=== PATIENT | female | born 1965 | race American Indian/Alaskan Native ===

== ENCOUNTER 2018-08-25 10:46 | Emergency (ER) | payer BC, OTHER ==
--- NOTE | 2018-08-25 11:22 | EDM.PDOC ---
ED HPI GENERAL MEDICAL PROBLEM - General Chief Complaint: Genitourinary Problem Stated Complaint: BLOOD IN URINE Time Seen by Provider: 08/25/18 11:15 Source of Information: Reports: Patient History Limitations: Reports: No Limitations - History of Present Illness INITIAL COMMENTS - FREE TEXT/NARRATIVE: 53-year-old female of [place] ancestry presents to the ED from [place], [place]. She presented to the clinic there with complaints of dysuria ,urgency frequency and gross hematuria associated with chills and bilateral back pain. She's been essentially laying in bed for the last 2-3 days because of illness. She has not ate or drank much. She is a type II diabetic controlled primarily with Lantus insulin 42 units twice a day. She has Humalog insulin to be used when necessary with meals. Barely her diabetes is very poorly controlled. She continues to lose weight although she's not sure how much. She recognizes that her pants are ill fitting. I can smell ketones on her breath. Denies any nausea or vomiting. She denies fever. She has had rigors/ chills last night and the night before. Onset: Sudden Onset Date: 08/23/18 (Started to feel ill on Wednesday.) Duration: Day(s):, Getting Worse Location: Reports: Back (Gross hematuria urgency frequency and bilateral flank pain lateral flank pain), Generalized, Other Quality: Reports: Ache (Chills with no identified fever) Severity: Moderate (bilateral backache in the flanks and lower back) Improves with: Reports: None Worsens with: Reports: None Context: Denies: Activity, Exercise, Lifting, Sick Contact, Trauma, Other Associated Symptoms: Reports: Cough, Fever/Chills, Loss of Appetite, Malaise, Nausea/Vomiting, Shortness of Breath. 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: Other (see below) (Mild nausea without vomiting none.) Lower Back Pain Score (Numeric/FACES): 6 - Related Data Allergies Allergy/AdvReac Type Severity Reaction Status Date / Time sulfamethoxazole Allergy Hives Verified 08/25/18 11:04 [From Bactrim] trimethoprim [From Bactrim] Allergy Hives Verified 08/25/18 11:04 Home Meds: Home Meds Ciprofloxacin HCl [Cipro] 500 mg PO BID #18 tablet 08/25/18 [Rx] Furosemide [Lasix] 40 mg PO DAILY #30 tablet 08/25/18 [Rx] Insulin Aspart [NovoLOG] 0 units INJECT ASDIRECTED 08/25/18 [History] Insulin Glarg,Human.Rec.Analog [Lantus] 42 units INJECT BID 08/25/18 [History] Magnesium Chloride [Slow-Mag] 71.5 mg PO BID #60 tablet. 08/25/18 [Rx] Potassium Chloride 20 meq PO BID #60 tablet.er 08/25/18 [Rx] Past Medical History Cardiovascular History: Reports: Bypass, High Cholesterol, Hypertension Other Cardiovascular History: triple Respiratory History: Reports: COPD (Still smokes 1-3 cigarettes per day.) Genitourinary History: Reports: UTI, Recurrent Other Genitourinary History: yeast infections Neurological History: Reports: Other (See Below) (Bilateral peripheral neuropathy in lower extremities and restless leg syndrome.) Psychiatric History: Reports: Anxiety, Depression Endocrine/Metabolic History: Reports: Diabetes, Type II - Past Surgical History Cardiovascular Surgical History: Reports: Coronary Artery Bypass, Coronary Artery Stent (Bypass carried out in 2001. Stent 1 placed prior to that she believes it may be 2000) GI Surgical History: Reports: Appendectomy Social & Family History - Tobacco Use Smoking Status *Q: Current Every Day Smoker Years of Tobacco use: 10 Packs/Tins Daily: 0.3 - Caffeine Use Caffeine Use: Reports: Soda, Tea - Recreational Drug Use Recreational Drug Type: Reports: Marijuana/Hashish Other Recreational Drug Type: twice per week - Living Situation & Occupation Living situation: Reports: Occupation: Employed [employer] [facility] - Review of Systems Review Of Systems: See Below Constitutional: Reports: Chills, Malaise, Weakness, Fatigue, Decreased Appetite , Weight Loss. Denies: Fever HEENT: Reports: Glasses Respiratory: Reports: Shortness of Breath, Wheezing, Cough. Denies: Pleuritic Chest Pain (Occasional wheezing), Sputum, Hemoptysis (Chronic cough minimal sputum production) Cardiovascular: Reports: Blood Pressure Problem, Dyspnea on Exertion (Feels lightheaded dizzy and weak since onset of illness 2 days ago), Lightheadedness. Denies: Chest Pain, Claudication (Chronic hypertension), Orthopnea Endocrine: Reports: Fatigue, High Glucose GI/Abdominal: Reports: Decreased Appetite, Nausea. Denies: Diarrhea, Melena, Vomiting : Reports: Dysuria, Frequency, Hematuria (Gross hematuria) Musculoskeletal: Reports: Joint Pain Skin: Reports: No Symptoms (These hips low back at times. Both feet hurt at nighttime due to peripheral neuropathy and restless leg syndrome.) Neurological: Reports: Other (Peripheral neuropathy below the knees bilaterally. ) Psychiatric: Reports: No Symptoms Hematologic/Lymphatic: Reports: No Symptoms ( I history has restless leg syndrome which is not being treated at present.) Immunologic: Reports: No Symptoms ED EXAM, RENAL/ - Physical Exam Exam: See Below Exam Limited By: No Limitations General Appearance: Alert, WD/WN, No Apparent Distress, Other (She is afebrile with a tinge of 35.8 and by palpation she is not warm to palpation at this time. She is cachectic in appearance and I can smell ketones on her breath.) Eye Exam: Bilateral Eye: Normal Inspection Throat/Mouth: Other Head: Atraumatic (On is very dry and coated.), Normocephalic Neck: Normal Inspection, Supple, Non-Tender, Full Range of Motion. No: Carotid Bruit, Lymphadenopathy (L), Lymphadenopathy (R), Thyromegaly Respiratory/Chest: Respiratory Distress (Tachypnea get rest 20-24/m.), Decreased Breath Sounds. No: Rhonchi (Breath sounds are diminished the lower 20 % of lung szymanski bilaterally with occasional expiratory wheezes.) Cardiovascular: Regular Rate, Rhythm, No Edema, No Gallop, No Murmur, No Rub. No: Normal Peripheral Pulses GI/Abdominal: Normal Bowel Sounds, Soft, Non-Tender, No Organomegaly, No Abnormal Bruit, No Mass, Pelvis Stable, Other (Has had an appendectomy.) Back Exam: Normal Inspection, Full Range of Motion, CVA Tenderness (L), CVA Tenderness (R) (Mild), Other ( mildpain is actually below the costal phrenic angles bilaterally. ) Extremities: Normal Inspection, Normal Range of Motion, Non-Tender, No Pedal Edema, Other (She has wasting of the musculature in her arms and legs.). No: Pedal Edema Neurological: Alert, Oriented, CN II-XII Intact, Normal Cognition, Other Psychiatric: Normal Affect, Normal Mood (Lightheaded and dizzy.) Skin Exam: Warm, Dry, Intact, Normal Color, No Rash Course - Vital Signs Last Recorded V/S: Last Vital Signs Temp 35.8 C 08/25/18 11:11 Pulse 98 08/25/18 11:11 Resp 20 08/25/18 11:11 BP 194/104 H 08/25/18 11:11 Pulse Ox 99 08/25/18 11:11 Orthostatic Blood Pressure [ 97/58 Standing] Orthostatic Blood Pressure [ 97/60 Sitting] Orthostatic Blood Pressure [ 128/79 Supine] - Orders/Labs/Meds Orders: Active Orders 24 hr Category Date Time Status Blood Glucose Check, Bedside [RC] ONETIME Care 08/25/18 15:09 Active CULTURE BLOOD [BC] Stat Lab 08/25/18 11:45 Received CULTURE BLOOD [BC] Stat Lab 08/25/18 11:55 Received CULTURE URINE [RM] Stat Lab 08/25/18 12:29 Received Magnesium Sulfate/Water [Magnesium Sulfate 4 GM in Med 08/25/18 13:00 Active Water 50 ML] 4 gm Premix Bag 1 bag IV ONETIME Sodium Chloride 0.9% [Normal Saline] 1,000 ml Med 08/25/18 11:30 Active IV ASDIRECTED Sodium Chloride 0.9% [Normal Saline] 250 ml Med 08/25/18 13:00 Active IV ASDIRECTED cefTRIAXone [Rocephin] 2 gm Med 08/25/18 11:45 Active Sodium Chloride 0.9% [Normal Saline] 100 ml IV Q24H Blood Culture x2 Reflex Set [OM.PC] Stat Oth 08/25/18 11:26 Ordered Medication Orders Sodium Chloride (Normal Saline) 1,000 mls @ 999 mls/hr IV ASDIRECTED BART Last Admin: 08/25/18 12:00 Dose: 999 mls/hr Ceftriaxone Sodium 2 gm/ (Sodium Chloride) 100 mls @ 200 mls/hr IV Q24H [facility] Last Admin: 08/25/18 12:00 Dose: 200 mls/hr Magnesium Sulfate 4 gm/ Premix 50 mls @ 12.5 mls/hr IV ONETIME ONE Stop: 08/25/18 16:59 Last Admin: 08/25/18 14:23 Dose: 12.5 mls/hr Sodium Chloride (Normal Saline) 250 mls @ 250 mls/hr IV ASDIRECTED BART Last Admin: 08/25/18 15:29 Dose: 250 mls/hr Labs: Laboratory Tests 08/25/18 08/25/18 08/25/18 Range/Units 11:45 11:45 11:45 WBC 6.65 (3.98-10.04) K/mm3 RBC 4.72 (3.98-5.22) M/mm3 Hgb 14.5 (11.2-15.7) gm/L Hct 41.7 (34.1-44.9) % MCV 88.3 (79.4-94.8) fl MCH 30.7 (25.6-32.2) pg MCHC 34.8 (32.2-35.5) g/dl RDW Std Deviation 42.4 (36.4-46.3) fL Plt Count 160 L (182-369) K/mm3 MPV 10.5 (9.4-12.3) fl Neutrophils % (Manual) 57 (40-60) % Band Neutrophils % 0 (0-10) % Lymphocytes % (Manual) 31 (20-40) % Atypical Lymphs % 0 % Monocytes % (Manual) 12 H (2-10) % Eosinophils % (Manual) 0 L (0.7-5.8) % Basophils % (Manual) 0 L (0.1-1.2) Platelet Estimate Adequate RBC Morph Comment Normal Sodium 128 L (136-145) mEq/L Potassium 3.1 L (3.5-5.1) mEq/L Chloride 84 L (98-107) mEq/L Carbon Dioxide 32 (21-32) mEq/L Anion Gap 15.1 H (5-15) BUN 20 H (7-18) mg/dL Creatinine 0.8 (0.55-1.02) mg/dL Est Cr Clr Drug Dosing 65.05 mL/min Estimated GFR (MDRD) > 60 (>60) mL/min BUN/Creatinine Ratio 25.0 H (14-18) Glucose 395 H (74-106) mg/dL POC Glucose (70-105) mg/dL Hemoglobin A1c (4.50-6.20) % Lactic Acid 1.4 (0.4-2.0) mmol/L Calcium 7.6 L (8.5-10.1) mg/dL Magnesium 0.6 L (1.8-2.4) mg/dl Total Bilirubin 1.0 (0.2-1.0) mg/dL AST 141 H (15-37) U/L ALT 88 H (14-59) U/L Alkaline Phosphatase 124 H (46-116) U/L C-Reactive Protein < 0.2 (<1.0) mg/dL NT-Pro-B Natriuret Pep (0-125) pg/mL Total Protein 8.2 (6.4-8.2) g/dl Albumin 2.7 L (3.4-5.0) g/dl Globulin 5.5 gm/dL Albumin/Globulin Ratio 0.5 L (1-2) TSH 3rd Generation (0.358-3.74) uIU/mL Urine Color (Yellow) Urine Appearance (Clear) Urine pH (5.0-8.0) Ur Specific Overton (1.005-1.030) Urine Protein (Negative) Urine Glucose (UA) (Negative) Urine Ketones (Negative) Urine Occult Blood (Negative) Urine Nitrite (Negative) Urine Bilirubin (Negative) Urine Urobilinogen (0.2-1.0) Ur Leukocyte Esterase (Negative) Urine RBC (0-5) /hpf Urine WBC (0-5) /hpf Urine WBC Clumps (NOT SEEN) /hpf Ur Epithelial Cells (0-5) /hpf Urine Bacteria (FEW) /hpf Urine Mucus (FEW) /hpf Ketones (0.0-0.3) mM 08/25/18 08/25/18 08/25/18 Range/Units 11:45 11:45 11:45 WBC (3.98-10.04) K/mm3 RBC (3.98-5.22) M/mm3 Hgb (11.2-15.7) gm/L Hct (34.1-44.9) % MCV (79.4-94.8) fl MCH (25.6-32.2) pg MCHC (32.2-35.5) g/dl RDW Std Deviation (36.4-46.3) fL Plt Count (182-369) K/mm3 MPV (9.4-12.3) fl Neutrophils % (Manual) (40-60) % Band Neutrophils % (0-10) % Lymphocytes % (Manual) (20-40) % Atypical Lymphs % % Monocytes % (Manual) (2-10) % Eosinophils % (Manual) (0.7-5.8) % Basophils % (Manual) (0.1-1.2) Platelet Estimate RBC Morph Comment Sodium (136-145) mEq/L Potassium (3.5-5.1) mEq/L Chloride (98-107) mEq/L Carbon Dioxide (21-32) mEq/L Anion Gap (5-15) BUN (7-18) mg/dL Creatinine (0.55-1.02) mg/dL Est Cr Clr Drug Dosing mL/min Estimated GFR (MDRD) (>60) mL/min BUN/Creatinine Ratio (14-18) Glucose (74-106) mg/dL POC Glucose (70-105) mg/dL Hemoglobin A1c 8.70 H (4.50-6.20) % Lactic Acid (0.4-2.0) mmol/L Calcium (8.5-10.1) mg/dL Magnesium (1.8-2.4) mg/dl Total Bilirubin (0.2-1.0) mg/dL AST (15-37) U/L ALT (14-59) U/L Alkaline Phosphatase (46-116) U/L C-Reactive Protein (<1.0) mg/dL NT-Pro-B Natriuret Pep 1583 H (0-125) pg/mL Total Protein (6.4-8.2) g/dl Albumin (3.4-5.0) g/dl Globulin gm/dL Albumin/Globulin Ratio (1-2) TSH 3rd Generation (0.358-3.74) uIU/mL Urine Color (Yellow) Urine Appearance (Clear) Urine pH (5.0-8.0) Ur Specific Overton (1.005-1.030) Urine Protein (Negative) Urine Glucose (UA) (Negative) Urine Ketones (Negative) Urine Occult Blood (Negative) Urine Nitrite (Negative) Urine Bilirubin (Negative) Urine Urobilinogen (0.2-1.0) Ur Leukocyte Esterase (Negative) Urine RBC (0-5) /hpf Urine WBC (0-5) /hpf Urine WBC Clumps (NOT SEEN) /hpf Ur Epithelial Cells (0-5) /hpf Urine Bacteria (FEW) /hpf Urine Mucus (FEW) /hpf Ketones 2.6 (0.0-0.3) mM 08/25/18 08/25/18 08/25/18 Range/Units 11:45 12:12 13:31 WBC (3.98-10.04) K/mm3 RBC (3.98-5.22) M/mm3 Hgb (11.2-15.7) gm/L Hct (34.1-44.9) % MCV (79.4-94.8) fl MCH (25.6-32.2) pg MCHC (32.2-35.5) g/dl RDW Std Deviation (36.4-46.3) fL Plt Count (182-369) K/mm3 MPV (9.4-12.3) fl Neutrophils % (Manual) (40-60) % Band Neutrophils % (0-10) % Lymphocytes % (Manual) (20-40) % Atypical Lymphs % % Monocytes % (Manual) (2-10) % Eosinophils % (Manual) (0.7-5.8) % Basophils % (Manual) (0.1-1.2) Platelet Estimate RBC Morph Comment Sodium (136-145) mEq/L Potassium (3.5-5.1) mEq/L Chloride (98-107) mEq/L Carbon Dioxide (21-32) mEq/L Anion Gap (5-15) BUN (7-18) mg/dL Creatinine (0.55-1.02) mg/dL Est Cr Clr Drug Dosing mL/min Estimated GFR (MDRD) (>60) mL/min BUN/Creatinine Ratio (14-18) Glucose (74-106) mg/dL POC Glucose 361 H (70-105) mg/dL Hemoglobin A1c (4.50-6.20) % Lactic Acid (0.4-2.0) mmol/L Calcium (8.5-10.1) mg/dL Magnesium (1.8-2.4) mg/dl Total Bilirubin (0.2-1.0) mg/dL AST (15-37) U/L ALT (14-59) U/L Alkaline Phosphatase (46-116) U/L C-Reactive Protein (<1.0) mg/dL NT-Pro-B Natriuret Pep (0-125) pg/mL Total Protein (6.4-8.2) g/dl Albumin (3.4-5.0) g/dl Globulin gm/dL Albumin/Globulin Ratio (1-2) TSH 3rd Generation 1.741 (0.358-3.74) uIU/mL Urine Color Yellow (Yellow) Urine Appearance Slt cloudy H (Clear) Urine pH 7.0 (5.0-8.0) Ur Specific Overton 1.015 (1.005-1.030) Urine Protein 3+ H (Negative) Urine Glucose (UA) 3+ H (Negative) Urine Ketones 1+ H (Negative) Urine Occult Blood 3+ H (Negative) Urine Nitrite Negative (Negative) Urine Bilirubin 1+ H (Negative) Urine Urobilinogen 1.0 (0.2-1.0) Ur Leukocyte Esterase 1+ H (Negative) Urine RBC 10-20 H (0-5) /hpf Urine WBC 30-40 H (0-5) /hpf Urine WBC Clumps Moderate (NOT SEEN) /hpf Ur Epithelial Cells 0-5 (0-5) /hpf Urine Bacteria Few (FEW) /hpf Urine Mucus Rare H (FEW) /hpf Ketones (0.0-0.3) mM Meds: Medications Generic Name Dose Route Start Last Admin Trade Name Freq PRN Reason Stop Dose Admin Sodium Chloride 1,000 mls @ 999 mls/hr 08/25/18 11:30 08/25/18 12:00 Normal Saline IV 999 mls/hr ASDIRECTED BART Administration Ceftriaxone Sodium 2 gm/ 100 mls @ 200 mls/hr 08/25/18 11:45 08/25/18 12:00 Sodium Chloride IV 200 mls/hr Q24H BART Administration Magnesium Sulfate 4 gm/ Premix 50 mls @ 12.5 mls/hr 08/25/18 13:00 08/25/18 14:23 IV 08/25/18 16:59 12.5 mls/hr ONETIME ONE Administration Sodium Chloride 250 mls @ 250 mls/hr 08/25/18 13:00 08/25/18 15:29 Normal Saline IV 250 mls/hr ASDIRECTED BART Administration Discontinued Medications Generic Name Dose Route Start Last Admin Trade Name Freq PRN Reason Stop Dose Admin Furosemide 40 mg 08/25/18 13:01 08/25/18 13:21 Lasix IVPUSH 04/11/19 13:02 40 mg NOW ONE Administration Potassium Chloride 10 meq/ 100 mls @ 100 mls/hr 08/25/18 13:00 08/25/18 13:21 Premix IV 08/25/18 13:59 100 mls/hr ONETIME ONE Administration Insulin Human Regular 10 unit 08/25/18 13:03 08/25/18 13:30 Humulin R SUBCUT 08/25/18 13:04 10 units ONETIME ONE Administration Ondansetron HCl 4 mg 08/25/18 11:32 08/25/18 12:00 Zofran IVPUSH 08/25/18 11:33 4 mg ONETIME ONE Administration - Radiology Interpretation Free Text/Narrative:: 53-year-old female of [place] presents to the ED with a history of gross hematuria 2 days with associated urgency frequency and terminal dysuria. She is developed bilateral flank low back pain as well with associated chills but no definitive fever. Patient is a type II diabetic and apparently not very well controlled. She does not check her sugars anymore. She states they used to be good. The history supplied by [facility] clinic suggest that she is poorly controlled type II diabetic with a glycosylated protein recently checked at 13.2. She is supposed to be on Lantus insulin 42 units twice a day. He recognizes that she has urinary frequency polyuria or polydipsia is losing weight but she is not sure how much weight. Currently I can smell ketones on her breath. She clinically has a urinary tract infection most likely with pyelonephritis with chills reported. Septic workup to be done to to include lactic acid serum ketones and of course urinalysis and culture. She'll be started on Rocephin 2 g IV as soon as blood cultures 2 been collected and urinalysis. - Re-Assessments/Exams Free Text/Narrative Re-Assessment/Exam: 08/25/18 12:55 Labs are back. White count is normal at 6.65. Differentials 57% neutrophils and no band cells. Hemoglobin is 14.5 with a hematocrit of 41.7. Platelet count is 160,000. Sodium is low at 128. Potassium is low at 3.1. Chloride is 84 with a bicarbonate of 32 i.e. CO2 retainer. Anion gap is 15.1. BUNs 20 with a creatinine of 0.8. GFR is greater than 60. Glucose is elevated at 395. Hemoglobin A1c is 8.70. Lactic acid is 1.4 calcium is 7.6 magnesium is very low at 0.6. Total bilirubin is 1.0 AST is elevated at 141 ALT is elevated at 88 alk phosphatase is 124. C-reactive protein is less than 0.2. BNP is elevated at 1583. Total protein is 8.2 with an albumin fraction low at 2.7. Urinalysis shows 3+ proteinuria 3+ glucosuria 1+ ketonuria and 3+. Blood. 1+ bilirubin 1+ leukocyte esterase 10-20 RBCs per high power field 30-40 WBCs per high-power field and white blood cells identified in clumps. Few bacteria noted .Urine culture has been ordered 08/25/18 13:02 discussed the findings of the labs with the patient. Due to her potassium being low and her sodium being low in the magnesium extremely low I decided to transfuse a K rider with 10 mg potassium IV over half hour. Magnesium 4 g IV over 2 hours. She will also receive a dose of Lasix 40 mg IV for her elevated BNP. I've ordered a serum TSH to make sure that it is not the cause of some of these issues as well along with her diabetes. She also requires 10 units of Humalog insulin subcutaneous tube to a blood sugar of nearly 400. 08/25/18 13:44 serum ketones are mildly elevated at 2.6. This should be remedied by insulin subcutaneous as well as 2 L of IV fluid. 08/25/18 1510: blood sugar check was 231. Patient reported that she felt quite dizzy when she got up to the bathroom. I had the nurses recheck her orthostatics and she was mildly positive. She has only had 1 L of fluids. She is currently receiving her magnesium and I will run normal saline at 500 mils an hour. She can have too much fluid because she is already a little bit of heart failure. 08/25/18 16:24 patient has nearly completed her magnesium 4 g infusion. She'll be discharged on Slow-Mag 1 tablet twice daily and have it checked in 10 days' time. Be placed on Slow-K 20 mg twice daily to improve her serum potassium levels. Requires Lasix 40 mg once daily every morning as well. Departure - Departure Time of Disposition: 16:27 Disposition: Home, Self-Care 01 Condition: Fair Clinical Impression: Hypomagnesemia, Hypokalemia, Hyponatremia Congestive heart failure Qualifiers: Heart failure type: diastolic Heart failure chronicity: acute on chronic Qualified Code(s): I50.33 - Acute on chronic diastolic (congestive) heart failure Urinary tract infection Qualifiers: Urinary tract infection type: acute pyelonephritis Qualified Code(s): N10 - Acute pyelonephritis - Discharge Information *PRESCRIPTION DRUG MONITORING PROGRAM REVIEWED*: Not Applicable *COPY OF PRESCRIPTION DRUG MONITORING REPORT IN PATIENT INGA: Not Applicable Prescriptions: Ciprofloxacin HCl [Cipro] 500 mg PO BID #18 tablet Furosemide [Lasix] 40 mg PO DAILY #30 tablet Magnesium Chloride [Slow-Mag] 71.5 mg PO BID #60 tablet. Potassium Chloride 20 meq PO BID #60 tablet.er Instructions: Hyponatremia, [id number], Heart Failure Eating Plan, Heart Failure Medicines, Hyponatremia, Hypomagnesemia, Hypokalemia Referrals: PCP,None [Primary Care Provider] - Forms: ED Department Discharge Additional Instructions: Evaluation in the emergency room today primarily in regards to acute onset of urinary tract symptoms with blood in the urine and urgency and frequency with burning on urination. Urine definitely shows signs of infection and with backache you are developing early kidney infection. You're therefore treated with intravenous antibiotic Rocephin 2 g to bring the infection under control a bit quicker due to your diabetes state. Blood sugars were 395 at the time of examination and you did require 10 units of insulin which brought it down to around 2:30. Other problems identified were low serum sodium levels at 128 which would make every week in the muscles and nauseated. Third problem was low magnesium level I. and normal is 2.0. This would be very hard on your heart muscle and making her more prone to heart failure which was also identified on today's exam. You were given a dose of Lasix intravenously here and he will need to continue tablet of Lasix once daily every morning to keep fluid from building up in her lungs and legs. You do have mild heart failure. Fourth problem identified was low serum potassium level which will be made lower by Lasix every morning and you need to take a potassium supplement called Slow-K twice daily with breakfast and dinner to maintain your serum potassium level. Magnesium level will be treated with Slow-Mag magnesium supplement twice daily at a different time than taking your antibiotic and will potassium pill. Urinary tract infection is to be treated with anabolic Cipro 500 mg twice daily for another 9 days with the first tablet due tomorrow morning. You need to follow-up with your personal care physician in 10 days' time and have your serum magnesium, potassium, kidney function rechecked. Expect marked improvements in the urinary tract burning and frequency within 24 hours. - My Orders Last 24 Hours: My Active Orders 08/25/18 11:26 Blood Culture x2 Reflex Set [OM.PC] Stat 08/25/18 11:30 Sodium Chloride 0.9% [Normal Saline] 1,000 ml IV ASDIRECTED 08/25/18 11:45 CULTURE BLOOD [BC] Stat cefTRIAXone [Rocephin] 2 gm Sodium Chloride 0.9% [Normal Saline] 100 ml IV Q24H 08/25/18 11:55 CULTURE BLOOD [BC] Stat 08/25/18 12:29 CULTURE URINE [RM] Stat 08/25/18 13:00 Magnesium Sulfate/Water [Magnesium Sulfate 4 GM in Water 50 ML] 4 gm Premix Bag 1 bag IV ONETIME Sodium Chloride 0.9% [Normal Saline] 250 ml IV ASDIRECTED 08/25/18 15:09 Blood Glucose Check, Bedside [RC] ONETIME - Assessment/Plan Last 24 Hours: My Active Orders 08/25/18 11:26 Blood Culture x2 Reflex Set [OM.PC] Stat 08/25/18 11:30 Sodium Chloride 0.9% [Normal Saline] 1,000 ml IV ASDIRECTED 08/25/18 11:45 CULTURE BLOOD [BC] Stat cefTRIAXone [Rocephin] 2 gm Sodium Chloride 0.9% [Normal Saline] 100 ml IV Q24H 08/25/18 11:55 CULTURE BLOOD [BC] Stat 08/25/18 12:29 CULTURE URINE [RM] Stat 08/25/18 13:00 Magnesium Sulfate/Water [Magnesium Sulfate 4 GM in Water 50 ML] 4 gm Premix Bag 1 bag IV ONETIME Sodium Chloride 0.9% [Normal Saline] 250 ml IV ASDIRECTED 08/25/18 15:09 Blood Glucose Check, Bedside [RC] ONETIME
[2018-08-25] MEDS ORDERED: Sodium Chloride 0.9% 1,000 ML IV SCH (11:30)
[2018-08-25] MEDS ORDERED: Ondansetron 4 MG/2 ML SDV IVPUSH ONE (11:32)
[2018-08-25] MEDS ORDERED: cefTRIAXone 2 GM in Sodium Chloride 0.9% 100 ML IV SCH (11:45)
[2018-08-25 12:28] LABS: HEMOGLOBIN A1C 8.7 % (4.50-6.20)
[2018-08-25] MEDS ORDERED: Potassium Chloride 10 MEQ in Premix Bag 1 BAG IV ONE (13:00)
[2018-08-25] MEDS ORDERED: Sodium Chloride 0.9% 250 ML IV SCH (13:00)
[2018-08-25] MEDS ORDERED: Magnesium Sulfate/Water 4 GM in Premix Bag 1 BAG IV ONE (13:00)
[2018-08-25] MEDS ORDERED: Furosemide 40 MG/4 ML VIAL IVPUSH ONE (13:01)
[2018-08-25] MEDS ORDERED: Insulin Regular, Human 100 Units/ML 3 ML Vial SUBCUT ONE (13:03)
--- NOTE | 2018-08-25 13:54 | CR ---
Chest: Portable view of the chest was obtained. Comparison: Prior chest x-ray of 03/09/11. Heart size and mediastinum are normal. Prior sternotomy noted. Lungs are clear with no acute parenchymal change. Bony structures are grossly intact. Impression: 1. Nothing acute is seen on portable chest x-ray. Diagnostic code #1
== END 2018-08-25 17:00 | disposition home or self-care (01) ==
LOC: JD.ED 10:46
DX: N10 Acute pyelonephritis (principal); I11.0 Hypertensive heart disease with heart failure; I50.33 Acute on chronic diastolic (congestive) heart failure; E83.42 Hypomagnesemia; E87.6 Hypokalemia; E87.1 Hypo-osmolality and hyponatremia; J44.9 Chronic obstructive pulmonary disease, unspecified; F17.210 Nicotine dependence, cigarettes, uncomplicated; E11.9 Type 2 diabetes mellitus without complications; F41.9 Anxiety disorder, unspecified; F32.9 Major depressive disorder, single episode, unspecified; Z79.4 Long term (current) use of insulin; Z79.899 Other long term (current) drug therapy; Z88.2 Allergy status to sulfonamides; Z88.1 Allergy status to other antibiotic agents
CPT/HCPCS: 36415; 71045; 80053; 81001; 82009; 82962; 83036; 83605; 83735; 83880; 84443; 85007; 85027; 86140; 87040; 87086; 87088; 87186; 93005; 96365; 96366; 96367; 96375; 99284; J0696; J1815; J1940; J2405; J3475; J3480; J7030; J7040; J7050; 99285